=== PATIENT | female | born 1960 | race Caucasian/White ===

== ENCOUNTER 2020-04-11 01:24 | Emergency (ER) | payer MEDICARE ==
[~2020-04-11] VITALS: Ht 160 cm; Wt 113.6 kg
[2020-04-11] MEDS ORDERED: SYNTHROID0.2 MG/TAB PO (01:50)
[2020-04-11] MEDS ORDERED: DOXYCYCLINE 10100 MG PO (02:59)
[2020-04-11 03:14] VITALS: BP 1158/74; PULSE 74; TEMP 97.6
--- NOTE | 2020-04-11 14:47 | NUR ---
[facility] received consult for patient who discharged early this morning for concerns for living arrangements and lack of primary care/services. TEDDY made report to [facility] (intake#[id number]) based on ED notes. TEDDY contacted patient to follow up and she reports that she and her , Jason live with a friend here in [place] and have been here since September. Patient states she and Jason used to live in [place] but moved to [place] in 2012. Patient states they could not afford to live in [place] anymore so they moved back to [place] to stay with friends. Patient states they don't pay rent but that she does some cooking and cleaning for them. Patient states she is on disability but that income barely covers everything they need. 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 Patient states she doesn't think she is eligible for Medicaid due to a "sticky situation" but is agreeable to consulting [employer] about Medicaid. Patient is also agreeable to having an appointment set up at [facility] but states she cannot afford any kind of co-pay if she has one. Patient has Medicare and no other coverage at this time. TEDDY contacted Ana Paula at [facility] who advised Dr. Chacon can accept patient and that they will follow up with patient to schedule appointment. TEDDY provided Ana Paula with patient's contact information. TEDDY called patient back and her answered the phone. TEDDY advised that [facility] would be contacting patient to set up appointment and Last states he will provide this update to patient, who is taking a nap. TEDDY consulted [employer] and will continue to follow as needed.
== END 2020-04-11 03:16 | disposition home or self-care (01) ==
LOC: COL.ER 01:24
DX: H00.013 Hordeolum externum right eye, unspecified eyelid (principal); E03.9 Hypothyroidism, unspecified; E66.9 Obesity, unspecified; L53.9 Erythematous condition, unspecified; F17.210 Nicotine dependence, cigarettes, uncomplicated; Z88.0 Allergy status to penicillin; Z88.2 Allergy status to sulfonamides; Z79.890 Hormone replacement therapy; Z68.41 Body mass index [BMI] 40.0-44.9, adult; W57.XXXA Bitten or stung by nonvenomous insect and other nonvenomous arthropods, initial encounter

== ENCOUNTER 2020-05-03 19:06 | Emergency (ER) | payer MEDICARE ==
[~2020-05-03] VITALS: Ht 162.6 cm; Wt 113.2 kg
[~2020-05-03 19:06] MED LIST: DOXYCYCLINE 10100 MG PO; SYNTHROID0.2 MG/TAB PO
[2020-05-03 19:16] VITALS: BP 169/92; TEMP 98.3
[2020-05-03 20:44] LABS: BASO # 0.1 (0.0-0.2); BASO % 0.7 % (0.0-2.0); EOS # 0.4 (0.0-0.7); EOS % 3.2 % (0-4.0); GRAN # 7.2 (1.4-6.5); GRAN % 66.2 % (42.2-75.2); HEMATOCRIT 51.1 % (37.0-47.0); HEMOGLOBIN 17.2 g/dl (12.5-16.0); LYMPH # 2.4 (1.2-3.4); LYMPH % 22.5 % (20.0-51.0); MEAN CELL VOLUME 96 fl (80.0-100.0); MEAN CORPUSCULAR HEMOGLOBIN 32 pg (27.0-31.0); MEAN CORPUSCULAR HGB CONC 34 g/dl (33.0-37.0); MEAN PLATELET VOLUME 10.5 fl (7.4-10.4); MONO # 0.7 (0.1-0.6); MONO % 6.8 % (1.7-9.3); PLATELET COUNT 288 K/mm3 (130-400); RED BLOOD COUNT 5.33 M/mm3 (4.10-5.30); REDCELL DISTRIBUTION WIDTH-CV 14.5 % (11.5-14.5)
[2020-05-03 20:56] LABS: ALBUMIN 4.3 gm/dL (3.5-5.0); BILIRUBIN,TOTAL 0.5 mg/dL (0.0-1.0); C-REACTIVE PROTEIN 2.2 mg/dL (0.0-0.9); CALCIUM 9.2 mg/dL (8.4-10.2); CREATININE, serum 0.68 (0.52-1.25); POTASSIUM 4.3 mmol/L (3.4-5.0); TOTAL PROTEIN 8.1 gm/dL (6.4-8.2)
[2020-05-03] MEDS ORDERED: NORCO 325 MG-51 TAB PO (21:59)
[2020-05-03] MEDS ORDERED: CEPHALEXIN500 M1 PO (21:59)
[2020-05-03] MEDS ORDERED: DOXYCYCLINE 10100 MG PO (21:59)
[2020-05-03 22:30] VITALS: PULSE 80
[2020-05-07] MEDS ORDERED: CIPRO 500MG TA500 MG PO (15:14)
== END 2020-05-03 22:30 | disposition home or self-care (01) ==
LOC: COL.ER 19:06
PROVIDERS: Emergency Medicine
DX: S80.861A Insect bite (nonvenomous), right lower leg, initial encounter (principal); L08.9 Local infection of the skin and subcutaneous tissue, unspecified; H60.91 Unspecified otitis externa, right ear; Z88.0 Allergy status to penicillin; Z88.2 Allergy status to sulfonamides; W57.XXXA Bitten or stung by nonvenomous insect and other nonvenomous arthropods, initial encounter
CPT/HCPCS: J3010

== ENCOUNTER 2024-05-30 18:10 | Emergency (ER) | payer MEDICARE ==
[~2024-05-30] VITALS: Ht 160 cm; Wt 108.2 kg
[~2024-05-30 18:10] MED LIST changes: +CEPHALEXIN500 M1 PO; +CIPRO 500MG TA500 MG PO; +NORCO 325 MG-51 TAB PO
[2024-05-30 18:17] VITALS: TEMP 97.4
[2024-05-30] MEDS ORDERED: NS 1,000 ML IV ONE (18:45)
[2024-05-30] MEDS ORDERED: Ondansetron 4 MG/2 ML VIAL IV ONE (18:45)
[2024-05-30 18:47] LABS: BASO # 0.1 K/mm3 (0.0-0.2); BASO % 0.5 % (0.0-2.0); EOS # 0.2 K/mm3 (0.0-0.7); EOS % 2.5 % (0.0-4.0); GRAN # 6.2 K/mm3 (1.4-6.5); GRAN % 64.6 % (42.2-75.2); HEMATOCRIT 51.8 % (37.0-47.0); HEMOGLOBIN 17.9 g/dl (12.5-16.0); LYMPH # 2.4 K/mm3 (1.2-3.4); LYMPH % 24.5 % (20.0-51.0); MEAN CELL VOLUME 95 fl (80.0-100.0); MEAN CORPUSCULAR HEMOGLOBIN 33 pg (27-31); MEAN CORPUSCULAR HGB CONC 35 g/dl (33.0-37.0); MONO # 0.7 K/mm3 (0.1-0.6); MONO % 7.6 % (1.7-9.3); PLATELET COUNT 237 K/mm3 (130-400); RED BLOOD COUNT 5.48 M/mm3 (4.10-5.30); REDCELL DISTRIBUTION WIDTH-CV 14.4 % (11.5-14.5)
[2024-05-30 19:12] LABS: ALBUMIN 3.8 g/dL (3.4-4.8); BILIRUBIN,TOTAL 0.4 mg/dL (0.2-1.2); CALCIUM 9.9 mg/dL (8.4-10.2); CREATININE, serum 0.76 mg/dL (0.57-1.11); POTASSIUM 3.9 mEq/L (3.5-4.5); TOTAL PROTEIN 7.5 g/dl (6.2-8.1)
[2024-05-30 20:19] LABS: PH 5.5 (5.0-8.5); URINE APPEARANCE CLOUDY (CLEAR/HAZY); URINE BLOOD NEGATIVE (NEGATIVE); URINE COLOR YELLOW (YELLOW); URINE GLUCOSE NEGATIVE (NEGATIVE); URINE KETONE TRACE (NEGATIVE); URINE NITRATE NEGATIVE (NEGATIVE); URINE PROTEIN(semi-quant) 1+ (NEGATIVE)
[2024-05-30] MEDS ORDERED: dexAMETHasone 10 MG/ML VIAL IV ONE (20:30)
[2024-05-30 20:32] LABS: COLLECTION METHOD CLEAN CATCH
[2024-05-30 21:21] VITALS: BP 151/95; PULSE 74
== END 2024-05-30 21:21 | disposition home or self-care (01) ==
LOC: COL.ER 18:10
PROVIDERS: Nurse Practitioner
DX: S06.0X0A Concussion without loss of consciousness, initial encounter (principal); W07.XXXA Fall from chair, initial encounter
CPT/HCPCS: J1100; J2405; J7030